=== PATIENT | male | born 1995 | race Caucasian/White ===

== ENCOUNTER 2018-08-24 08:14 | Emergency (ER) | payer MEDICAID ==
[~2018-08-24] VITALS: Ht 188 cm; Wt 100.0 kg
[~2018-08-24 08:14] MED LIST: GUAI120015 PO; PSEU120T55 PO
[2018-08-24 09:38] LABS: MONOTEST NEGATIVE (Neg)
[2018-08-24 10:38] VITALS: BP 135/73
== END 2018-08-24 11:17 | disposition home or self-care (01) ==
LOC: ER 08:15
DX: B34.9 Viral infection, unspecified (principal)
CPT/HCPCS: 36415; 71046; 86308; 87081; 87502; 87503; 87880; 99285